=== PATIENT | male | born 1965 | race African-American/Black ===

== ENCOUNTER 2017-12-27 12:44 | Emergency (ER) | payer SELFPAY ==
[~2017-12-27] VITALS: Ht 175.3 cm; Wt 80.0 kg
[~2017-12-27 12:44] MED LIST: CLIN300C11 PO
[2017-12-27 12:50] VITALS: BP 130/72
== END 2017-12-27 18:39 | disposition left against medical advice (07) ==
LOC: ER 13:02
DX: R68.89 Other general symptoms and signs (principal); Z53.21 Procedure and treatment not carried out due to patient leaving prior to being seen by health care provider